=== PATIENT | female | born 1940 | race Two or more races ===

== ENCOUNTER → 2024-10-14 | Emergency (ER) | payer OTHER ==
[~2024-10-14] VITALS: Ht 167.6 cm; Wt 62.6 kg
[~2024-10-14] MED LIST: KETOROLAC TROMETHAMINE 30 MG VIAL IV ONE; KETOROLAC TROMETHAMINE 30 MG VIAL ONE
== END | disposition home or self-care (01) ==
LOC: ER 11:32
DX: M06.89 Other specified rheumatoid arthritis, multiple sites (principal)
CPT/HCPCS: 96365; 99282; J1885